=== PATIENT | female | born 1985 | race Caucasian/White ===

== ENCOUNTER 2022-05-18 10:11 | Emergency (ER) | payer SELFPAY | END 2022-05-18 13:16 | disposition home or self-care (01) | LOC: CSHERS 10:11 | DX: J06.9 Acute upper respiratory infection, unspecified (principal); Z20.822 Contact with and (suspected) exposure to COVID-19 | CPT/HCPCS: 87081; 87430; 87804; 99284; U0003; U0005 ==

== ENCOUNTER 2025-07-03 22:09 | Emergency (ER) | payer OTHER ==
[2025-07-04] MEDS ORDERED: HYDROcodone/Acetaminophen 5/325 mg Tablet ONE (00:28)
== END 2025-07-04 02:31 | disposition home or self-care (01) ==
LOC: CSHERS 22:09
DX: S80.02XA Contusion of left knee, initial encounter (principal); W18.30XA Fall on same level, unspecified, initial encounter
CPT/HCPCS: 99283